=== PATIENT | female | born 1930 | race Caucasian/White ===

== ENCOUNTER 2018-11-29 13:46 | Inpatient (IN) ==
[~2018-11-29 13:46] MED LIST: CARDIZEM IV SCH
--- NOTE | 2018-11-29 14:15 | Diag Imaging Result Doc PS360 ---
EXAM: CHEST-2 VIEWS HISTORY: shortness of breath TECHNIQUE: Chest two views COMPARISON: 10/14/2017 FINDINGS: The lungs are hyperexpanded the heart is not enlarged. The vessels are small. There are no infiltrates. No pleural effusions. IMPRESSION: Emphysema Electronically signed by Pablo Manning 11/29/2018 2:13 PM
--- NOTE | 2018-11-29 15:22 | EKG Report ---
Test Performed on : 11/29/2018 1:52:40 PM Test Reason : palpitations Blood Pressure : / mmHG Vent. Rate : 130 BPM Atrial Rate : 123 BPM P-R Int : 000 ms QRS Dur : 088 ms QT Int : 270 ms P-R-T Axes : 000 072 059 degrees QTc Int : 397 ms Atrial fibrillation. with rapid ventricular response. Low voltage QRS Septal infarct , age undetermined Abnormal ECG When compared with ECG of 14-OCT-2017 09:56, Atrial fibrillation. has replaced Sinus rhythm. Vent. rate has increased BY 51 BPM Confirmed by Edwin Milton MD ([id number]) on 12/01/2018 4:34:36 PM
[2018-11-29] MEDS: CARDIZEM 125 MG in NS 100 ML IV SCH (16:05)
[2018-11-29] MEDS: LOVENOX SUBQ SCH (16:06)
[2018-11-29 16:15] LABS: BASO# 0.02 X1000 (0.0-0.2); BASO% 0.2 % (0.0-0.8); EOS# 0.08 X1000 (0.0-0.7); HEMATOCRIT 43.9 % (37.0-47.0); HEMOGLOBIN 14.5 g/dL (12.0-16.0); LYMPH# 0.71 X1000 (1.2-3.4); LYMPH% 8.6 % (20.5-51.1); MCH 29.4 PG (27-31); MCV 88.9 FL (81-99); MONO# 0.47 X1000 (0.11-0.59); MONO% 5.7 % (1.7-9.3); MPV 10.4 FL (7.4-10.4); NEUT# 6.97 X1000 (1.4-6.5); NEUT% 84.5 % (42.2-75.2); PLT 208 X1000 (130-400); RBC 4.94 XMIL (4.2-5.4); RDW 14.3 % (11.5-14.5); WBC 8.25 X1000 (4.8-10.8)
[2018-11-29 16:26] LABS: AGAP 13; ALB/GLOB RATIO 1.9; ALBUMIN 4.9 g/dL (3.5-5.0); ALKALINE PHOSPHATASE 64 U/L (32-104); BUN 13 mg/dL (8-22); CHLORIDE 92 mmol/L (98-107); CK PROFILE 75 U/L (24-173); COSMO 275; CREATININE 0.8 mg/dL (0.5-0.9); ESTIMATED GFR > 60; GLUCOSE 88 mg/dL (70-104); GOT 30 U/L (10-30); GPT 23 U/L (10-36); POTASSIUM 4.2 mmol/L (3.5-5.1); SODIUM 138 mmol/L (136-145); TCO2 33 mmol/L (25-35); TOTAL BILIRUBIN 0.51 mg/dL (0.20-1.00); TOTAL PROTEIN 7.5 g/dL (6.3-8.3)
[2018-11-29 16:33] LABS: FREE T4 1.62 ng/dL (0.93-1.70); TSH 2.28 uIUmL (0.27-4.20)
--- NOTE | 2018-11-29 16:40 | ECHO REPORT ---
ORDER DATE: 11/29/2018 INTERPRETING PHYSICIAN: Paul Mesa MD ECHOCARDIOGRAPHIC MEASUREMENTS: 1. Interventricular septum 0.6 cm. 2. Left ventricular posterior wall 0.6 cm. 3. Diastolic diameter 3.8 cm. 4. Left atrium 2.9 cm. 5. Aorta 2.8 cm. SUMMARY OF THE 2-DIMENSIONAL IMAGIN. Atrial fibrillation was noted with a heart rate ranging from 120 to 140 beats per minute. 2. Tricuspid valve was normal. 3. The aortic valve leaflets were sclerosed, trileaflet, opening normally. 4. Pulmonic valve was normal. 5. There is mild pulmonary regurgitation. 6. Tricuspid valve was normal. 7. There is mild mitral regurgitation. 8. Peak velocity across the aortic valve less than 2 m/sec. 9. There is no aortic stenosis or regurgitation. 10. There is aortic sclerosis. 11. Mild tricuspid regurgitation. 12. Peak velocity across the tricuspid valve was 3.4 m/sec. 13. Pulmonary artery systolic pressure of 55 mmHg. 14. Normal left ventricular cavity size. 15. Estimated ejection fraction of 35% to 40%. However, tachycardia was noted. This could overestimate the ejection fraction. In some views, ejection fraction appeared to be lower. 16. There is no pericardial effusion. cc: MD Edwin Albrecht MD
--- NOTE | 2018-11-29 17:42 | CARDIOLOGY CONSULTATION ---
DATE: 11/29/2018 CHIEF COMPLAINT: Shortness of breath. HISTORY OF PRESENT ILLNESS: Ms. Khan is a 87-year-old white female with a history of abdominal aortic aneurysm repair in 2012. She presented to Dr. Milton' office today with complaints of weakness that have been ongoing for the last couple of weeks. She had no acute palpitations or heart racing. No chest pain. Her shortness of breath was not present at rest and would occur with minimal activity like walking across a room. She denied any overt orthopnea. No bleeding issues. PAST MEDICAL HISTORY: 1. Significant for atrial fibrillation that she suffered in the postoperative around the time of her aneurysm repair. 2. Emphysema with home oxygen therapy. 3. Hypertension. 4. Hyperlipidemia. 5. Abdominal aortic aneurysm repair in February [address] Cartagena. 6. Carotid artery stenosis. 7. History of normal nuclear scan in 2014 with a normal ejection fraction at that time as well. SOCIAL HISTORY: She is a previous smoker not current. No illicit drugs. FAMILY HISTORY: Significant for hypertension. REVIEW OF SYSTEMS: A 10 system review of systems is negative except for those mentioned in the HPI. PHYSICAL EXAMINATION: Vital Signs: She is afebrile. Heart rate of 97 presently. She seems to be popping in and out of atrial fibrillation regularly during the exam. Her blood pressure is 153/108. General: She is in no acute distress. She is very pleasant. HEENT: Oropharynx is moist. Poor dentition. Eye examination, pink conjunctivae. White sclerae. Neck: Examination shows no obvious thyromegaly or thyroid tenderness. Cardiovascular: She sounds to be in a regular rate and rhythm. At the time of my exam her heart rate was 91 on telemetry and it showed sinus. She had no lower extremity edema. Chest: Sounds clear. Difficult to hear breath sounds. No increased work of breathing. No obvious wheezing. Abdomen: Soft, nontender, nondistended. She has no obvious organomegaly. Skin: Exam is warm and dry throughout without any rashes. Neurological: She is moving all extremities well. She has no lateralizing deficits. Psychiatric: She is alert, oriented. She is very pleasant. PERTINENT DATA: Her chest x-ray shows hyperexpanded lungs with no cardiomegaly, small vasculature. Her EKG today at 1352 hours shows what appears to be a coarse rapid atrial fibrillation versus atrial flutter. Rate of 130 beats per minute. Her laboratories were not back as of yet. Previously normal kidney function based on labs in June 2018 with a creatinine of 0.9. TSH is pending. ASSESSMENT: Ms. Khan is an 87-year-old female with a history of postoperative atrial fibrillation in the past. Now presents in atrial fibrillation. PLAN: She is having paroxysms of atrial fibrillation currently. We will initiate some antiarrhythmic therapy in the form of flecainide at 50 mg b.i.d. I will follow up on the echo. She had a previously normal nuclear scan in 2014. Her laboratories are pending. We will have a discussion about anticoagulation with the patient and proceed from there. cc: MD Edwin Jo MD
[2018-11-29 17:57] LABS: URINE SOURCE CLEAN CATCH
[2018-11-29 18:07] LABS: BILIRUBIN URINE NEGATIVE (NEGATIVE); BLOOD URINE NEGATIVE (NEGATIVE); COLOR YELLOW; GLUCOSE URINE NEGATIVE (NEGATIVE); KETONE URINE 20 mg/dL (NEGATIVE); LEUKOCYTES URINE NEGATIVE (NEGATIVE); NITRITE URINE NEGATIVE (NEGATIVE); PH URINE 5.5; PROTEIN URINE NEGATIVE (NEGATIVE); SP GRAVITY URINE 1.008; TURBIDITY URINE CLEAR (CLEAR); UROBILINOGEN URINE NORMAL (NORMAL)
[2018-11-29 18:09] LABS: UR EPITHELIAL CELLS <10 /HPF (<10); URINE BACTERIA NEGATIVE /HPF; URINE RBC <10 /HPF (<10); URINE WBC <10 /HPF (<10)
--- NOTE | 2018-11-29 19:59 | HISTORY AND PHYSICAL ---
PRIMARY CARE PHYSICIAN: Dr. Edwin Milton. CHIEF COMPLAINT: Palpitations. HISTORY OF PRESENT ILLNESS: An 87-year-old white female with a very complicated past medical history presents for evaluation of above-mentioned symptoms. Pertinent's history of present illness began several weeks ago. At that time, patient noted an increased work of breathing and shortness of breath above her baseline advanced COPD. The patient states she was able to carry on her daily activities, although with more difficulty. She denied chest discomfort associated. She denied significant cough, congestion, or fevers. The patient presented to my office this morning for routine followup. Upon arrival, patient did note significant shortness of breath with walking into the office. Upon my evaluation, patient was noted to have an elevated heart rate. EKG confirmed atrial fibrillation with rapid ventricular response. Patient will be admitted to the hospital for full evaluation and management of this condition. Of note, patient denies any additional symptoms with exception of increasing shortness of breath. She denies chest discomfort, feelings of palpitations, paroxysmal nocturnal dyspnea, orthopnea, and increasing lower extremity edema. PAST MEDICAL HISTORY: 1. Abnormal electrocardiogram with poor R-wave progression, possible left atrial enlargement. 2. Status post abdominal aortic aneurysm repair by Dr. Cartagena in 2012. 3. Atrial fibrillation/atrial flutter diagnosed postoperative abdominal aortic aneurysm repair in February 2013. The patient was treated with antiarrhythmic agents for several months but was subsequently converted to Toprol-XL with excellent response until today. 4. Carotid artery disease. 5. Advanced COPD requiring oxygen supplementation. 6. Hypertension. 7. Hypertriglyceridemia. 8. Reflux disease. 9. Glaucoma. 10. History of thrombosed external hemorrhoids status post surgical intervention in 2009. 11. Chronic hoarseness. 12. Hyperlipidemia. 13. Osteoarthritis. 14. Osteoporosis. 15. History of a basal cell carcinoma of the skin. 16. Prolonged tobacco use. 17. History of DONNA/BSO in 1971. CURRENT MEDICATIONS: 1. Aspirin 325 mg daily. 2. Calcium plus vitamin D twice daily. 3. DuoNeb 3 times daily. 4. Latanoprost 0.005 one drop each eye at bedtime. 5. L-lysine 1000 mg daily. 6. Magnesium 250 mg daily. 7. Metamucil 1 capsule daily. 8. Metoprolol ER 50 mg daily. 9. Biotin/keratin daily. 10. Omeprazole 40 mg daily. 11. Vitamin C 1000 mg daily. 12. Vitamin A 400 units daily. 13. Gingko biloba 60 mg daily. ALLERGIES: Patient states she is allergic to Augmentin, Chantix, Cipro, eggs, epinephrine, Fosamax, Macrobid, MiraLAX, Novocain, statin medications, Symbicort and Ultracet. SOCIAL HISTORY: Patient previously smoked 1-1/4 packs per day for 40 years. She stopped in 2012. She denies alcohol or illicit drug use. She is retired from working in the [employer] business. She enjoys cooking and gardening. FAMILY HISTORY: Patient's father passed at age 63 secondary to complications of an acute myocardial infarction. Patient's mother passed at age 93 secondary to complications of a stroke. History of prostate cancer, Parkinson disease and emphysema was or is present in siblings. REVIEW OF SYSTEMS: A 12 point review of systems was performed. Pertinent positives and negatives are noted in history present illness. PHYSICAL EXAMINATION: VITAL SIGNS: Temperature 97.5 degrees, heart rate 90, respirations 18, blood pressure is 151/83. GENERAL: Chronically ill-appearing, elderly, no acute distress. HEENT: Normocephalic, atraumatic. Pupils equal, round, reactive to light. Extraocular muscles intact. Sclerae anicteric. [place] conjunctivae. Oral and nasopharynx clear without exudate. NECK: Supple. No lymphadenopathy. No thyromegaly. No bruits auscultated. CARDIOVASCULAR: Tachycardic, irregularly irregular. No significant murmurs, rubs, or gallops. PULMONARY: Prolonged expiratory phase. Adequate air movement. ABDOMEN: Soft, nontender, nondistended. Positive bowel sounds. EXTREMITIES: Moves all extremities well. No significant clubbing, cyanosis, or edema. DERMATOLOGIC: Evaluation reveals no evidence of rash. LABORATORY DATA: Pending at the time of admission. ASSESSMENT AND PLAN: 87-year-old white female with a complicated past medical history, presented to my office for routine follow up with atrial fibrillation with rapid ventricular response. The patient has noted increasing shortness of breath recently. Patient will be admitted to the hospital for full evaluation and management of this condition. 1. Admit to the CICU. 2. Atrial fibrillation with rapid ventricular response-as above, patient experienced paroxysmal postoperative event after abdominal aortic aneurysm surgery. Patient has been treated with Toprol-XL since that time with excellent response. Unfortunately, patient has experienced a recurrence. We will start patient on a Cardizem drip. We will check multiple labs including CMP, magnesium, cardiac enzymes, and thyroid panel. We will consult Dr. Lowery for further evaluation and management. We will schedule an echocardiogram. 3. Advanced chronic obstructive pulmonary disease-patient has approaching end-stage disease. We will continue oxygen per protocol. We will continue DuoNeb. We will encourage aspiration precautions and incentive spirometry. 4. Hypertension-patient's blood pressure is slightly elevated at admission. This will allow room for treatment with Cardizem therapy. We will follow this while hospitalized and titrate medications as necessary. 5. Hyperlipidemia/hypertriglyceridemia-we will remain aware. Unfortunately, she is unable to tolerate statin intervention. 6. Reflux disease-we will continue omeprazole therapy. 7. Fluid, electrolytes, nutrition. We will monitor electrolytes. Saline lock IV. Cardiac prudent diet. 8. Prophylaxis. Patient will be placed on subcu Lovenox. cc: Edwin Milton MD
[2018-11-29] MEDS: TAMBOCOR PO SCH (20:28)
[2018-11-29] MEDS: XALATAN 0.005% OPH SOLN BOTH EYES SCH (20:30)
[2018-11-29] MEDS: CALTRATE 600 + D PO SCH (20:35)
[2018-11-29] MEDS: DUONEB (A & A) INH SCH (21:15)
[2018-11-30] MEDS ORDERED: LOVENOX SUBQ SCH
--- NOTE | 2018-11-30 01:09 | EKG Report ---
Test Performed on : 11/29/2018 10:08:57 PM Test Reason : Afib to SR Blood Pressure : / mmHG Vent. Rate : 062 BPM Atrial Rate : 062 BPM P-R Int : 168 ms QRS Dur : 072 ms QT Int : 438 ms P-R-T Axes : 082 075 069 degrees QTc Int : 444 ms Normal sinus rhythm. Low voltage QRS Cannot rule out Anteroseptal infarct (cited on or before 29-NOV-2018) Nonspecific ST and T wave abnormality Abnormal ECG When compared with ECG of 29-NOV-2018 13:52, (Unconfirmed) Sinus rhythm. has replaced Atrial fibrillation. Vent. rate has decreased BY 68 BPM Non-specific change in ST segment in Inferior leads Inverted T waves have replaced nonspecific T wave abnormality in Anterior leads Confirmed by Edwin Milton MD ([id number]) on 12/01/2018 4:37:55 PM
[2018-11-30] MEDS: PRILOSEC PO SCH (06:07)
--- NOTE | 2018-11-30 07:09 | EKG Report ---
Test Performed on : 11/30/2018 06:46:37 AM Test Reason : afib Blood Pressure : / mmHG Vent. Rate : 067 BPM Atrial Rate : 067 BPM P-R Int : 176 ms QRS Dur : 068 ms QT Int : 418 ms P-R-T Axes : 085 076 078 degrees QTc Int : 441 ms Normal sinus rhythm. Possible Left atrial enlargement Low voltage QRS Cannot rule out Anteroseptal infarct (cited on or before 29-NOV-2018) Abnormal ECG When compared with ECG of 29-NOV-2018 22:08, (Unconfirmed) No significant change was found Confirmed by Edwin Milton MD ([id number]) on 12/01/2018 4:43:21 PM
[2018-11-30] MEDS: TAMBOCOR PO SCH ×2 (08:12→20:23)
[2018-11-30] MEDS: TOPROL XL PO SCH (08:12)
[2018-11-30] MEDS: CALTRATE 600 + D PO SCH ×2 (08:12→20:24)
[2018-11-30] MEDS: VITAMIN C PO SCH (08:12)
[2018-11-30] MEDS: VITAMIN E PO SCH (08:12)
[2018-11-30] MEDS: PATIENT'S OWN MED PO SCH (08:13)
[2018-11-30] MEDS: CARDIZEM 125 MG in NS 100 ML IV SCH (08:26)
[2018-11-30] MEDS: DUONEB (A & A) INH SCH ×3 (08:32→20:53)
[2018-11-30] MEDS ORDERED: ASPIRIN PO SCH (09:00)
[2018-11-30] MEDS: LOVENOX SUBQ SCH ×2 (14:29→23:31)
--- NOTE | 2018-11-30 18:58 | CARDIOLOGY PROGRESS NOTE ---
DATE: 11/30/2018 SUBJECTIVE: Ms. Khan reports she feels well. She is not having any shortness of breath. No palpitations. OBJECTIVE: Afebrile. Heart rates are variable, anywhere from the 60s all the way up to the 150s since yesterday. Blood pressure 83/56. Most systolics have been anywhere from the 90s to 110s. Generally no acute distress.Cardiovascular: She is in an irregularly irregular rhythm. Current telemetry shows rate-controlled atrial flutter. She has no lower extremity edema. Her chest exam is notable for mild end-expiratory wheezes with prolonged expiratory phase and poor breath sounds. Her abdomen is soft and nontender. LABORATORY DATA: She has no chemistry data from today. DIAGNOSTIC DATA: Her echocardiogram yesterday demonstrated an EF of 35% to 40%. Significant tachycardia was noted that could limit some of the ability to determine the EF. ASSESSMENT: Ms. Khan is an 87-year-old female who presents with rapid atrial fibrillation and currently is in atrial flutter. PLAN: We will change her over to Lovenox at a 1 mg/kg dose. I have reduced her aspirin to 81. We will continue her on the flecainide. We will tentatively plan on EBONIE cardioversion in the morning if she remains in atrial flutter. cc: MD Edwin Jo MD
[2018-11-30] MEDS: XALATAN 0.005% OPH SOLN BOTH EYES SCH (20:23)
[2018-11-30] MEDS: PATIENT'S OWN MED BOTH EYES SCH (20:24)
--- NOTE | 2018-11-30 21:46 | PROGRESS NOTE ---
DATE: 11/30/2018 SUBJECTIVE: Patient was admitted yesterday with atrial fibrillation with a rapid ventricular response. Patient was initially placed on a Cardizem drip. Subsequently, flecainide has been added. Despite this, patient has only achieved intermittent, nonsustained episodes of a sinus- generated rhythm. Her rate, however, has improved considerably when in atrial fibrillation. This morning, patient was resting in bed. She slept reasonably well overnight. This afternoon, patient states she has done reasonably well. She does note one episode of shortness of breath, which she attributes to being hot. She denied chest pain associated. Energy level remains low. She denies fevers, chills, nausea, or vomiting. OBJECTIVE: Vital Signs: T-max 98.7 degrees, heart rate 54 to 154, respirations 16 to 30, blood pressure 83 to 147 over 49 to 140. General: Chronically ill appearing, in no acute distress. Cardiovascular: Irregularly irregular, bradycardic. No significant murmurs, rubs, or gallops. Pulmonary: Prolonged expiratory phase. Adequate air movement. Abdomen: Soft, nontender, nondistended. Positive bowel sounds. Extremities: Moves all extremities well. No significant clubbing, cyanosis, or edema. Dermatologic: No evidence of rash. LABORATORY DATA: None. ASSESSMENT AND PLAN: 1. Atrial fibrillation with rapid ventricular response: As described above, patient continues to experience intermittent episodes despite flecainide therapy. We will plan for a transesophageal echocardiogram cardioversion in the morning. We will defer further medications and anticoagulation to Dr. Lowery. 2. Advanced chronic obstructive pulmonary disease: Patient is approaching end-stage. We will continue her bronchodilators as prescribed at home. We will continue oxygen per protocol. 3. Hypertension: Patient's blood pressure is controlled on her current regimen. 4. Hyperlipidemia/hypertriglyceridemia: Patient is unable to tolerate statin intervention. We will remain aware. 5. Reflux disease: Patient's symptoms are controlled with omeprazole therapy. 6. Disposition: At this point, patient continues to require [facility]ci care in a hospital setting. We will plan discharge home once appropriate. cc: Edwin Milton MD
[2018-12-01] MEDS: CARDIZEM 125 MG in NS 100 ML IV SCH (00:21)
[2018-12-01 06:02] LABS: AGAP 9; BUN 15 mg/dL (8-22); CHLORIDE 91 mmol/L (98-107); COSMO 262; CREATININE 0.7 mg/dL (0.5-0.9); ESTIMATED GFR > 60; GLUCOSE 99 mg/dL (70-104); MAGNESIUM 1.8 mg/dL (1.5-2.7); POTASSIUM 4.2 mmol/L (3.5-5.1); SODIUM 130 mmol/L (136-145); TCO2 30 mmol/L (25-35)
[2018-12-01] MEDS: PRILOSEC PO SCH (06:08)
[2018-12-01] MEDS: ASPIRIN PO SCH ×2 (07:32→09:03)
[2018-12-01] MEDS: CALTRATE 600 + D PO SCH ×3 (07:32→20:05)
[2018-12-01] MEDS: VITAMIN C PO SCH ×2 (07:32→09:05)
[2018-12-01] MEDS: TAMBOCOR PO SCH ×3 (07:32→20:05)
[2018-12-01] MEDS: TOPROL XL PO SCH ×2 (07:33→09:05)
[2018-12-01] MEDS: DUONEB (A & A) INH SCH ×4 (07:52→21:35)
--- NOTE | 2018-12-01 08:15 | EKG Report ---
Test Performed on : 12/01/2018 06:14:51 AM Test Reason : afib Blood Pressure : / mmHG Vent. Rate : 058 BPM Atrial Rate : 058 BPM P-R Int : 176 ms QRS Dur : 078 ms QT Int : 444 ms P-R-T Axes : 084 061 079 degrees QTc Int : 435 ms Sinus bradycardia. with premature atrial complexes. Low voltage QRS Cannot rule out Anteroseptal infarct (cited on or before 29-NOV-2018) Abnormal ECG When compared with ECG of 30-NOV-2018 06:46, (Unconfirmed) premature atrial complexes. are now present Confirmed by Edwin Milton MD ([id number]) on 12/01/2018 4:53:17 PM
[2018-12-01] MEDS: PATIENT'S OWN MED BOTH EYES SCH ×4 (09:04→20:06)
[2018-12-01] MEDS: PATIENT'S OWN MED PO SCH (09:04)
[2018-12-01] MEDS: VITAMIN E PO SCH (09:18)
[2018-12-01] MEDS: LOVENOX SUBQ SCH (12:04)
--- NOTE | 2018-12-01 19:56 | CARDIOLOGY PROGRESS NOTE ---
DATE: 12/01/2018 SUBJECTIVE: Ms. Khan reports she is feeling better. She feels like she is breathing better. PHYSICAL EXAMINATION: She is afebrile. Heart rate 68, blood pressure 115/66. Generally: She is in no acute distress. Cardiovascular: She sounds to be in a regular rate and rhythm. Telemetry currently shows sinus. She has no lower extremity edema. Chest exam: Continues to have a reduced breath sounds as well as mild expiratory wheezes. She has no increased work of breathing. Abdomen: Soft, nontender. PERTINENT DATA: Her ejection fraction was noted to be 35 to 40 percent with a difficult study due to tachycardia. Her sodium is 130. Potassium 4.2, BUN 15, creatinine 0.7. ASSESSMENT: Ms. Khan is an 87-year-old female who presented with atrial fibrillation. PLAN: At this point, I have stopped the diltiazem infusion. I have stopped Lovenox and place her on Eliquis was 2.5 b.i.d. I would continue her on metoprolol as well as the flecainide. I will likely recheck her echo as an outpatient after maintenance of sinus rhythm and hopefully she will have improvement of her ejection fraction with that. Presently from a cardiovascular standpoint, I believe she is reasonable for discharge. cc: MD Edwin Jo MD
[2018-12-01] MEDS: ELIQUIS PO SCH (20:05)
[2018-12-01] MEDS: XALATAN 0.005% OPH SOLN BOTH EYES SCH (20:07)
[2018-12-01 20:27] LABS: URINE SOURCE CLEAN CATCH
[2018-12-01 20:30] LABS: BILIRUBIN URINE NEGATIVE (NEGATIVE); BLOOD URINE SMALL (NEGATIVE); COLOR YELLOW; GLUCOSE URINE NEGATIVE (NEGATIVE); KETONE URINE NEGATIVE (NEGATIVE); LEUKOCYTES URINE MODERATE (NEGATIVE); NITRITE URINE NEGATIVE (NEGATIVE); PROTEIN URINE NEGATIVE (NEGATIVE); SP GRAVITY URINE 1.008; TURBIDITY URINE CLEAR (CLEAR); UR EPITHELIAL CELLS <10 /HPF (<10); URINE BACTERIA 1+ /HPF; URINE RBC <10 /HPF (<10); URINE WBC 20-40 /HPF (<10); UROBILINOGEN URINE NORMAL (NORMAL)
--- NOTE | 2018-12-02 05:06 | PROGRESS NOTE ---
DATE: 12/01/2018 SUBJECTIVE: As described, patient was admitted with atrial fibrillation with rapid ventricular response. Medication adjustments have been per Dr. Lowery's recommendations. This morning, patient was scheduled for EBONIE cardioversion. Prior to this occurring, patient converted to a sinus-generated rhythm. Upon my arrival this morning, patient stated she felt reasonably well. She was in a normal sinus rhythm. She denied chest pains or palpitations. Throughout the day, patient remained in a sinus-generated rhythm. This evening, patient denies symptoms. She has had no fevers, chills, nausea, vomiting, shortness of breath above baseline, chest pains, or palpitations. OBJECTIVE: T-max 98.1 degrees, heart rate 58 to 82, respirations 18 to 23, blood pressure 95- 145/49-70. General: Chronically ill-appearing. No acute distress. Cardiovascular: Regular rate and rhythm. No significant murmurs, rubs, or gallops. Pulmonary: Prolonged expiratory phase. Adequate air movement. Abdomen: Soft, nontender, nondistended. Positive bowel sounds. Extremities: Moves all extremities well. No significant clubbing, cyanosis, or edema. Dermatologic: Evaluation reveals no evidence of rash. Laboratory Data: None. ASSESSMENT/PLAN: 1. Atrial fibrillation with rapid ventricular response-as above, patient converted to a normal sinus rhythm early this morning. She has maintained this rhythm since that time. She currently is being treated with flecainide and metoprolol therapy. Cardizem drip has been discontinued. Should patient remain in a sinus-generated rhythm in the morning, we will consider discharge home with a 30 day event monitor. 2. [id number] Eliquis was initiated by Dr. Lowery today. Thus far, she has tolerated reasonably well. 3. Advanced chronic obstructive pulmonary disease-the patient is approaching end-stage. She is currently being treated with bronchodilators and oxygen supplementation. Symptoms are reasonably stable. 4. Hypertension-patient's blood pressure has remained reasonably controlled on her current regimen. 5. Hyperlipidemia/hypertriglyceridemia-unfortunately, patient is unable tolerate statin intervention. We will remain aware. 6. Reflux disease-patient's symptoms are controlled with omeprazole therapy. 7. Disposition-at this point, patient continues to require senior care care in a hospital setting. We will plan discharge home in the morning should her condition continue to improve. cc: Edwin Milton MD
[2018-12-02] MEDS: PRILOSEC PO SCH (06:08)
[2018-12-02] MEDS: VITAMIN E PO SCH ×2 (07:29→08:12)
[2018-12-02] MEDS: VITAMIN C PO SCH ×2 (07:29→08:12)
[2018-12-02] MEDS: ASPIRIN PO SCH ×2 (07:29→08:11)
[2018-12-02] MEDS: ELIQUIS PO SCH ×3 (07:30→20:34)
[2018-12-02] MEDS: CALTRATE 600 + D PO SCH ×3 (07:30→20:34)
[2018-12-02] MEDS: TAMBOCOR PO SCH ×2 (07:30→20:34)
[2018-12-02] MEDS: TOPROL XL PO SCH ×2 (07:30→20:34)
--- NOTE | 2018-12-02 07:38 | EKG Report ---
Test Performed on : 12/02/2018 07:15:49 AM Test Reason : a fib Blood Pressure : / mmHG Vent. Rate : 126 BPM Atrial Rate : 252 BPM P-R Int : 000 ms QRS Dur : 090 ms QT Int : 324 ms P-R-T Axes : 000 064 063 degrees QTc Int : 469 ms Atrial flutter. with 2:1 AV conduction. Low voltage QRS Cannot rule out Anterior infarct (cited on or before 29-NOV-2018) Abnormal ECG When compared with ECG of 01-DEC-2018 21:31, (Unconfirmed) No significant change was found Confirmed by Edwin Milton MD ([id number]) on 12/05/2018 11:31:22 AM
--- NOTE | 2018-12-02 07:55 | EKG Report ---
Test Performed on : 12/01/2018 9:31:06 PM Test Reason : Rhythem change Blood Pressure : / mmHG Vent. Rate : 109 BPM Atrial Rate : 258 BPM P-R Int : 000 ms QRS Dur : 100 ms QT Int : 346 ms P-R-T Axes : 089 077 074 degrees QTc Int : 465 ms Atrial flutter. with variable AV block. Low voltage QRS Cannot rule out Anterior infarct (cited on or before 29-NOV-2018) Abnormal ECG When compared with ECG of 01-DEC-2018 06:14, Atrial flutter. has replaced Sinus rhythm. Vent. rate has increased BY 51 BPM Confirmed by Edwin Milton MD ([id number]) on 12/05/2018 11:25:37 AM
[2018-12-02] MEDS ORDERED: TOPROL XL PO ONE (07:56)
[2018-12-02] MEDS ORDERED: TAMBOCOR PO ONE (08:00)
[2018-12-02] MEDS: PATIENT'S OWN MED BOTH EYES SCH ×4 (08:11→20:35)
[2018-12-02] MEDS: PATIENT'S OWN MED PO SCH (08:12)
[2018-12-02] MEDS: DUONEB (A & A) INH SCH ×3 (09:48→19:58)
[2018-12-02] MEDS: SEPTRA DS PO SCH ×2 (09:59→20:34)
--- NOTE | 2018-12-02 15:33 | EKG Report ---
Test Performed on : 12/02/2018 2:56:14 PM Test Reason : afib Blood Pressure : / mmHG Vent. Rate : 105 BPM Atrial Rate : 105 BPM P-R Int : 228 ms QRS Dur : 106 ms QT Int : 350 ms P-R-T Axes : 098 039 068 degrees QTc Int : 462 ms Atrial flutter with 2 to 1 block Low voltage QRS Cannot rule out Anterior infarct (cited on or before 29-NOV-2018) Nonspecific ST abnormality Inferior leads Abnormal ECG When compared with ECG of 02-DEC-2018 07:15, (Unconfirmed) ST elevation now present in Inferior leads Confirmed by Edwin Milton MD ([id number]) on 12/05/2018 11:58:56 AM
[2018-12-02] MEDS: XALATAN 0.005% OPH SOLN BOTH EYES SCH (20:34)
--- NOTE | 2018-12-02 20:43 | CARDIOLOGY PROGRESS NOTE ---
DATE: 12/02/2018 SUBJECTIVE: Ms. Khan reports some episodes of palpitations last night. This corresponds to an episode of atrial flutter. Dr. Siddiqi adjusted her medications to include flecainide at an increase dose of 100 mg b.i.d. PHYSICAL EXAMINATION: Afebrile. Heart rate at the time my examination was in the low 100s. Blood pressure 105/73. Generally: No acute distress. Cardiovascular: She is in a regular rhythm, tachycardic rate. She has no lower extremity edema. No murmurs. Chest: Has bilateral end-expiratory wheezes. Abdomen: Soft, nontender. PERTINENT DATA: No new chemistry data. PLAN: We will proceed with the escalated doses of flecainide. I will make her n.p.o. after midnight. Consider cardioversion if she remains in a flutter in the morning. EKG to be checked now. cc: MD Edwin Jo MD
--- NOTE | 2018-12-02 22:26 | PROGRESS NOTE ---
DATE: 12/02/2018 SUBJECTIVE: Upon my arrival this morning, the patient had converted back to atrial fibrillation. Denies significant symptoms associated. Patient's flecainide dose has been adjusted per Dr. Siddiqi. Throughout the day today, patient states she did reasonably well. She had intermittent episodes of atrial fibrillation. This evening, once again, patient is in atrial fibrillation with rapid ventricular response. She denies fevers, chills, nausea, vomiting, shortness of breath, or chest discomfort. OBJECTIVE: T-max 97.9 degrees, heart rate 65 to 127, respirations 18 to 21, blood pressure 98 to 134 over 73 to 87.General: No acute distress. Cardiovascular: Irregularly irregular. Tachycardic. No significant murmurs, rubs, or gallops. Pulmonary: Prolonged expiratory phase. Adequate air movement. Abdomen: Soft, nontender, nondistended. Positive bowel sounds. Extremities: Moves all extremities well. No significant clubbing, cyanosis, or edema. Dermatologic: Evaluation reveals no evidence of rash. LABORATORY DATA: None. ASSESSMENT/PLAN: 1. Atrial fibrillation with rapid ventricular response - Unfortunately, the patient continues to have frequent episodes. The patient's flecainide dosage was adjusted this morning per Cardiology. Metoprolol was increased. Unfortunately, despite this, she continues to have episodes. We will continue our current regimen with plans for cardioversion in the a.m. should she remain in atrial fibrillation. 2. Anticoagulation - The patient is treated with Eliquis per Dr. Lowery. 3. Advanced chronic obstructive pulmonary disease - We will continue the patient on bronchodilators and oxygen supplementation. Symptoms are stable. 4. Hypertension - The patient's blood pressure, at times, has been low. For now, we will continue her current regimen. We will follow this closely. 5. Hyperlipidemia - The patient is unable tolerate statin intervention. We will continue nonmedical management. 6. Reflux disease - The patient's symptoms are controlled with omeprazole therapy. 7. Disposition - At this point, the patient continues to require longterm care in a hospital setting. We will plan discharge home once appropriate. cc: Edwin Milton MD
--- NOTE | 2018-12-03 07:49 | EKG Report ---
Test Performed on : 12/03/2018 06:25:24 AM Test Reason : afib Blood Pressure : / mmHG Vent. Rate : 102 BPM Atrial Rate : 102 BPM P-R Int : 170 ms QRS Dur : 098 ms QT Int : 368 ms P-R-T Axes : 090 036 075 degrees QTc Int : 479 ms Atrial flutter. Low voltage QRS Cannot rule out Anteroseptal infarct (cited on or before 29-NOV-2018) Abnormal ECG When compared with ECG of 02-DEC-2018 14:56, (Unconfirmed) No significant change was found Confirmed by Edwin Milton MD ([id number]) on 12/05/2018 12:04:25 PM
[2018-12-03] MEDS: DUONEB (A & A) INH SCH ×3 (08:06→23:41)
[2018-12-03] MEDS: PRILOSEC PO SCH (09:33)
[2018-12-03] MEDS: TAMBOCOR PO SCH ×2 (09:33→20:58)
[2018-12-03] MEDS: CALTRATE 600 + D PO SCH ×2 (09:33→20:58)
[2018-12-03] MEDS: VITAMIN C PO SCH (09:33)
[2018-12-03] MEDS: ASPIRIN PO SCH (09:33)
[2018-12-03] MEDS: ELIQUIS PO SCH ×2 (09:33→20:58)
[2018-12-03] MEDS: VITAMIN E PO SCH (09:34)
[2018-12-03] MEDS: SEPTRA DS PO SCH ×2 (09:34→20:59)
[2018-12-03] MEDS: PATIENT'S OWN MED PO SCH (09:37)
[2018-12-03] MEDS ORDERED: XYLOCAINE 2% VISCOUS ONE (10:06)
[2018-12-03] MEDS ORDERED: AMIDATE ONE (10:55)
[2018-12-03] MEDS ORDERED: XYLOCAINE-MPF 2% ONE (10:55)
[2018-12-03] MEDS ORDERED: ANESTHESIA PB SET 88 IN 5742 ONE (11:11)
[2018-12-03] MEDS ORDERED: NS 1,000 ML ONE (11:11)
--- NOTE | 2018-12-03 12:11 | EKG Report ---
Test Performed on : 12/03/2018 11:59:38 AM Test Reason : RHYTHM CHANGE Blood Pressure : / mmHG Vent. Rate : 084 BPM Atrial Rate : 084 BPM P-R Int : 230 ms QRS Dur : 122 ms QT Int : 394 ms P-R-T Axes : 089 -44 076 degrees QTc Int : 465 ms Suspect atrial flutter Left axis deviation Anterior infarct (cited on or before 29-NOV-2018) Abnormal ECG When compared with ECG of 03-DEC-2018 06:25, (Unconfirmed) QRS duration has increased Possible Serial changes of Anterior infarct present Confirmed by Edwin Milton MD ([id number]) on 12/05/2018 12:21:11 PM
[2018-12-03] MEDS: PATIENT'S OWN MED BOTH EYES SCH ×3 (13:28→20:58)
[2018-12-03] MEDS ORDERED: REGLAN PO ONE (14:44)
--- NOTE | 2018-12-03 15:13 | CARDIOLOGY PROGRESS NOTE ---
DATE: 12/03/2018 SUBJECTIVE: Ms. Khan reports some nausea today. She went down for a EBONIE cardioversion but apparently converted prior to any procedure being performed. She did have some sedation administered. PHYSICAL EXAMINATION: She is afebrile. Her heart rate presently is in the 80s, blood pressure 139/78. Generally she is in no acute distress. Cardiovascular she sounds to be in a regular rate and rhythm. Telemetry currently shows sinus. She has no lower extremity edema.Chest: Has decreased breath sounds somewhat diffusely. No increased work of breathing. Abdomen: Soft, nontender. PERTINENT DATA: No new chemistry data from today. ASSESSMENT: Ms. Khan is an 87-year-old female who presents with atrial fibrillation. PLAN: She appears to be in sinus rhythm. She is on Eliquis at a low dose according to her age and weight. She continues on flecainide as well as metoprolol. We will continue on these medications and evaluate her with a cardiac event detector at home to evaluate for occult episodes as originally she was tachycardic on presentation with no symptoms of atrial fibrillation. From my standpoint, she is okay to go home. Currently, the only thing that would maintain her in the hospital at this point, is a lack of resolution of her current nausea. cc: MD Edwin Jo MD
--- NOTE | 2018-12-03 20:04 | EKG Report ---
Test Performed on : 12/03/2018 6:02:26 PM Test Reason : confirm rhythm Blood Pressure : / mmHG Vent. Rate : 106 BPM Atrial Rate : 106 BPM P-R Int : 190 ms QRS Dur : 114 ms QT Int : 370 ms P-R-T Axes : 078 001 059 degrees QTc Int : 491 ms Atrial flutter. Low voltage QRS Cannot rule out Anterior infarct (cited on or before 29-NOV-2018) Abnormal ECG When compared with ECG of 03-DEC-2018 11:59, (Unconfirmed) Serial changes of evolving Anterior infarct present Confirmed by Edwin Milton MD ([id number]) on 12/05/2018 12:26:23 PM
[2018-12-03] MEDS: XALATAN 0.005% OPH SOLN BOTH EYES SCH (20:57)
[2018-12-03] MEDS: TOPROL XL PO SCH (20:58)
[2018-12-04] MEDS: PRILOSEC PO SCH ×2 (05:19→06:01)
[2018-12-04] MEDS: DUONEB (A & A) INH SCH ×3 (08:21→22:58)
--- NOTE | 2018-12-04 09:23 | PROGRESS NOTE ---
DATE: 12/03/2018 SUBJECTIVE: Upon my arrival this morning, patient was noted to be in atrial flutter with rapid ventricular response. Plan for cardioversion was made. Patient was taken for cardioversion. Propofol was provided by Anesthesia. Upon providing this, patient converted to a sinus-generated rhythm. Throughout the day, patient did reasonably well with the exception of nausea. She was treated with as needed Reglan. This evening, unfortunately, patient has converted back to atrial flutter with a heart rate in the low 100s. She complains of nausea, however, this has improved with Reglan. She denies fevers, chills, shortness of breath, or chest discomfort at present time. OBJECTIVE: T-max 98.3 degrees, heart rate 87 to 104, respirations 116 to 120, blood pressure 111 to 141/68 to 80.General: Elderly. No acute distress. Cardiovascular: Tachycardic, regular rhythm. No significant murmurs, rubs, or gallops. Pulmonary: Clear to auscultation bilaterally. Prolonged expiratory phase. Abdomen: Soft, nontender, nondistended. Positive bowel sounds. Extremities: Moves all extremities well. No significant clubbing, cyanosis, or edema. Dermatologic: Evaluation reveals no evidence of rash. LABORATORY DATA: None. ASSESSMENT AND PLAN: 1. Atrial fibrillation/atrial flutter with rapid ventricular response-unfortunately, patient continues to have frequent fluctuations between sinus rhythm and atrial fibrillation/atrial flutter. As above, patient was taken for cardioversion, but converted prior to this occurring. Unfortunately, patient has converted back to atrial fibrillation/atrial flutter. Heart rate at present time is slightly tachycardic, but better than upon admission. For now, we will continue metoprolol and flecainide therapy. We will discuss case with Dr. Lowery. We will determine if further intervention is warranted. 2. Anticoagulation-we will continue patient on Eliquis therapy per Dr. Lowery. 3. Nausea-this likely was a consequence of anesthesia. We will continue as needed Reglan. 4. Advanced chronic obstructive pulmonary disease-the patient continues to require supplemental oxygen therapy. We will continue bronchodilators as well. 5. Hypertension-patient's blood pressure is controlled on her current regimen. 6. Reflux disease-will continue patient on omeprazole therapy. Symptoms are controlled. 7. Disposition-at this point, patient continues to require group home care in a hospital setting. We will plan discharge home once appropriate. cc: Edwin Milton MD
[2018-12-04] MEDS: VITAMIN C PO SCH (10:08)
[2018-12-04] MEDS: TAMBOCOR PO SCH (10:09)
[2018-12-04] MEDS: ELIQUIS PO SCH ×3 (10:09→20:32)
[2018-12-04] MEDS: ASPIRIN PO SCH (10:09)
[2018-12-04] MEDS: CALTRATE 600 + D PO SCH ×3 (10:09→20:31)
[2018-12-04] MEDS: SEPTRA DS PO SCH (10:09)
[2018-12-04] MEDS: VITAMIN E PO SCH (10:09)
[2018-12-04] MEDS: PATIENT'S OWN MED PO SCH (10:24)
[2018-12-04] MEDS: PATIENT'S OWN MED BOTH EYES SCH ×4 (10:24→20:32)
[2018-12-04] MEDS ORDERED: ZOFRAN IV PRN (10:30)
[2018-12-04] MEDS ORDERED: REGLAN PO PRN (10:49)
[2018-12-04] MEDS ORDERED: REGLAN PO ONE (10:49)
[2018-12-04 12:32] LABS: BASO# 0.02 X1000 (0.0-0.2); BASO% 0.2 % (0.0-0.8); EOS# 0.01 X1000 (0.0-0.7); EOS% 0.1 % (0.0-10.0); HEMOGLOBIN 12.8 g/dL (12.0-16.0); IMM GRAN# 0.03 X1000 (0.0-0.04); IMM GRAN% 0.3 % (0.0-0.5); LYMPH# 0.78 X1000 (1.2-3.4); LYMPH% 7.7 % (20.5-51.1); MCHC 32.8 g/dL (33-37); MCV 91.3 FL (81-99); MONO# 0.62 X1000 (0.11-0.59); MONO% 6.1 % (1.7-9.3); MPV 10.7 FL (7.4-10.4); NEUT# 8.63 X1000 (1.4-6.5); NEUT% 85.6 % (42.2-75.2); PLT 181 X1000 (130-400); RBC 4.27 XMIL (4.2-5.4); RDW 14.2 % (11.5-14.5); WBC 10.09 X1000 (4.8-10.8)
[2018-12-04] MEDS ORDERED: LANOXIN PO SCH (12:45)
[2018-12-04 13:09] LABS: ALB/GLOB RATIO 1.4; ALBUMIN 3.6 g/dL (3.5-5.0); CALCIUM 9.6 mg/dL (8.8-10.2); CREATININE 0.9 mg/dL (0.5-0.9); POTASSIUM 5.4 mmol/L (3.5-5.1); TOTAL BILIRUBIN 0.25 mg/dL (0.20-1.00); TOTAL PROTEIN 6.1 g/dL (6.3-8.3)
[2018-12-04 13:16] LABS: LYMPHS 9 % (21-51); MONO 6 % (1-9); SEGS 85 % (42-75)
[2018-12-04 13:17] LABS: ANISOCYTOSIS 1+
--- NOTE | 2018-12-04 15:07 | PROGRESS NOTE ---
DATE: 12/04/2018 SUBJECTIVE: Upon my arrival this morning, patient was in bed. She noted significant nausea over the course of the last 24 to 48 hours. The patient denies being able to eat adequate amounts of food and hydrate to support herself. Her energy level is very low. From a cardiovascular standpoint, patient continues to have intermittent episodes of atrial fibrillation. Rates are better controlled with her current medical regimen. She denies fevers, chills, shortness of breath, or chest discomfort. OBJECTIVE: T-max 98.4 degrees, heart rate 63 to 104, respirations 14 to 20, blood pressure 95 to 139 over 55 to 77.General: Elderly, no acute distress. Cardiovascular: Regular rate and rhythm. No significant murmurs, rubs, or gallops. Pulmonary: Clear to auscultation bilaterally. Abdomen: Soft, nontender, nondistended. Positive bowel sounds. Extremities: Moves all extremities well. No significant clubbing, cyanosis, or edema. Dermatologic: Evaluation reveals no evidence of rash. LABORATORY DATA: Pending at the time of my dictation. ASSESSMENT AND PLAN: 1. Atrial fibrillation/atrial flutter with rapid ventricular response-the patient continues to have paroxysmal events. Fortunately, her rate is much better controlled with each. For now, we will continue flecainide and metoprolol therapy. Should the patient's nausea improve, we will consider discharge home in the near future. Further intervention with goal to achieve sinus rhythm will be considered as an outpatient per Cardiology. 2. Anticoagulation-thus far, patient has tolerated Eliquis therapy. We will continue this. 3. Nausea-unfortunately, this is significant. This is currently limiting our ability to discharge home. We will start patient on Reglan as needed. We will convert the patient from Bactrim to cefdinir therapy. We will check multiple labs today. We will follow this as well. 4. Chronic obstructive pulmonary disease-patient has significant disease. She is currently being treated with bronchodilators and oxygen therapy. Symptoms are stable. 5. Hypertension. Patient's blood pressure is controlled on her current regimen. We will follow this. 6. Reflux disease-we will continue patient on omeprazole therapy. 7. Disposition-at this point, patient continues to require long-term care in a hospital setting. We will plan discharge home once appropriate. cc: Edwin Milton MD
[2018-12-04] MEDS ORDERED: NS 1,000 ML IV SCH (18:45)
[2018-12-04] MEDS: OMNICEF PO SCH ×2 (19:31→20:32)
[2018-12-04] MEDS: TOPROL XL PO SCH ×2 (19:31→20:32)
[2018-12-04] MEDS: XALATAN 0.005% OPH SOLN BOTH EYES SCH ×2 (19:31→20:32)
--- NOTE | 2018-12-04 21:03 | CARDIOLOGY PROGRESS NOTE ---
DATE: 12/04/2018 SUBJECTIVE: Mr. Khan continues to have periodic bouts of atrial fibrillation overnight. These are relatively asymptomatic. PHYSICAL EXAMINATION: Vital signs: She is afebrile. Heart rate is 67, blood pressure 134/62. Her peak heart rates yesterday seemed to be documented in the low 100's. Generally: She is in no acute distress. Cardiovascular: She is in a regular rate and rhythm. Currently in sinus. She has no murmurs. No S3. Chest Exam: Notable for reduced breath sounds diffusely with mild expiratory wheezes. She has no increased work of breathing. Abdomen: Soft, nontender. PERTINENT DATA: White count 10, hematocrit 39, platelet count is 181,000. ASSESSMENT: Ms. Khan is an 87-year-old female with paroxysmal atrial fibrillation. PLAN: We will change our plan and go to a rate control method. She continues on apixaban. We will stop her flecainide and place her on a low dose of digoxin daily, which will be added to the metoprolol she is already on. cc: MD Edwin Jo MD MTDDejan
[2018-12-05] MEDS: PRILOSEC PO SCH ×2 (05:02→06:01)
[2018-12-05 06:02] LABS: ALBUMIN 3.9 g/dL (3.5-5.0); CALCIUM 9.5 mg/dL (8.8-10.2); CREATININE 0.9 mg/dL (0.5-0.9); POTASSIUM 4.9 mmol/L (3.5-5.1); TOTAL BILIRUBIN 0.3 mg/dL (0.20-1.00); TOTAL PROTEIN 5.9 g/dL (6.3-8.3)
[2018-12-05] MEDS: DUONEB (A & A) INH SCH ×3 (08:30→21:32)
[2018-12-05] MEDS: VITAMIN C PO SCH (10:13)
[2018-12-05] MEDS: ELIQUIS PO SCH ×2 (10:13→20:38)
[2018-12-05] MEDS: ASPIRIN PO SCH (10:13)
[2018-12-05] MEDS: OMNICEF PO SCH ×2 (10:13→20:38)
[2018-12-05] MEDS: LANOXIN PO SCH (10:13)
[2018-12-05] MEDS: VITAMIN E PO SCH (10:13)
[2018-12-05] MEDS: CALTRATE 600 + D PO SCH ×2 (10:13→20:37)
[2018-12-05] MEDS: PATIENT'S OWN MED PO SCH (10:28)
[2018-12-05] MEDS: PATIENT'S OWN MED BOTH EYES SCH ×4 (10:28→21:18)
--- NOTE | 2018-12-05 13:55 | Diag Imaging Result Doc PS360 ---
EXAM: CHEST-PORTABLE INDICATION: COPD TECHNIQUE: One view COMPARISON: 11/29/2018 FINDINGS: The lungs are hyperinflated suggesting COPD, stable. There is chronic appearing interstitial thickening similar to the previous study. Central vasculature is prominent suggesting pulmonary venous congestion, however. There is no discrete pleural fluid collection or pneumothorax. The cardiac silhouette is essentially unremarkable. IMPRESSION: COPD changes and suggestion of pulmonary venous congestion. Electronically signed by Yoni Ledezma 12/05/2018 1:53 PM
--- NOTE | 2018-12-05 15:58 | CARDIOLOGY PROGRESS NOTE ---
DATE: 12/05/2018 SUBJECTIVE: Ms. Khan reports she is no better today. She has complaints of shortness of breath. She is on a Venturi mask. PHYSICAL EXAMINATION: Vital Signs: The patient is afebrile. Her heart rate is 74, blood pressure 127/64. General: She is in no acute distress. Cardiovascular: She is in a tachycardic and irregular rhythm consistent with atrial fibrillation. Her chest exam has diffuse end-expiratory wheezes, prolonged expiratory phase. Abdomen: Soft, nontender. PERTINENT DATA: Lab data shows a sodium 131, potassium 4.9, BUN is 18, creatinine 0.9. Her I's and O's demonstrate a net negative fluid balance for the last several days. ASSESSMENT: Ms. Khan is an 87-year-old female with COPD, presents with atrial fibrillation. PLAN: We added in digoxin yesterday. The patient seems to be failing both rhythm and rate control methods. At this point, I will discuss with [facility] tomorrow potential for transfer over for AV node ablation and pacemaker. I believe her significant degree of lung disease is going to be a constant pressure to push her back into atrial fibrillation and it seems like she is a difficult patient to rate control. cc: MD Edwin Jo MD
--- NOTE | 2018-12-05 18:28 | EKG Report ---
Test Performed on : 12/05/2018 11:19:24 AM Test Reason : change in rhythm Blood Pressure : / mmHG Vent. Rate : 124 BPM Atrial Rate : 159 BPM P-R Int : 000 ms QRS Dur : 090 ms QT Int : 288 ms P-R-T Axes : 000 025 -41 degrees QTc Int : 413 ms Atrial fibrillation. with rapid ventricular response. Low voltage QRS Cannot rule out Anteroseptal infarct (cited on or before 29-NOV-2018) Abnormal ECG When compared with ECG of 03-DEC-2018 18:02, (Unconfirmed) QRS duration has decreased Serial changes of evolving Anteroseptal infarct present Confirmed by Edwin Milton MD ([id number]) on 12/07/2018 9:12:49 PM
[2018-12-05] MEDS: TOPROL XL PO SCH (20:38)
[2018-12-05] MEDS: XALATAN 0.005% OPH SOLN BOTH EYES SCH (20:38)
--- NOTE | 2018-12-05 21:30 | PROGRESS NOTE ---
DATE: 12/05/2018 SUBJECTIVE: Unfortunately, patient continues to have issues with atrial fibrillation with rapid ventricular response. She has attempted several medications without significant control. We planned a cardioversion, however this is not been needed secondary to the paroxysmal nature of her disease. Over the course of the last 24 hours, patient's oxygen demands have increased. She notes increasing shortness of breath. She has intermittent palpitations. She denies chest discomfort, fevers and chills. She has does continue to have intermittent nausea with decreased p.o. intake. OBJECTIVE: T-max 98.6 degrees, heart rate 72 to 120, respirations 15-18, blood pressure 97 to 150 over 57 to 70.General: Elderly, no acute distress. Cardiovascular: Tachycardic, regular rhythm. No significant murmurs, rubs or gallops. Pulmonary: Clear to auscultation bilaterally. Prolonged expiratory phase. Abdomen: Soft, nontender, nondistended. Positive bowel sounds. Extremities: Moves all extremities well. No significant clubbing, cyanosis or edema. Dermatologic: Evaluation reveals no evidence of rash. LABORATORY DATA: Sodium 131, potassium 4.9, chloride 90, bicarb 31, BUN 18, creatinine 0.9, glucose 90, calcium 9.5, total bilirubin 0.30, total protein 5.9, albumin 3.9, alkaline phosphatase 57, AST 52, ALT 64, proBNP 3014. ASSESSMENT AND PLAN: 1. Atrial fibrillation/atrial flutter with rapid ventricular response-unfortunately, patient appears to have failed medical intervention and rate control. I have discussed case with Dr. Lowery. We will consider transfer to [facility] tomorrow for pacemaker ablation. 2. Anticoagulation-we will continue patient on Eliquis therapy. Thus far she has tolerated well. 3. Nausea-this has been significant. I suspect this was largely secondary to Bactrim therapy. Patient has been transitioned off of Bactrim. We will continue symptomatic management for now. 4. Chronic obstructive pulmonary disease-patient has longstanding disease. We will continue patient's optimized medical management. 5. Urinary tract infection- patient has been transitioned from Bactrim to Cefdinir therapy. This will be followed. 6. Hypertension-patient's blood pressure is controlled on her current regimen. 7. Reflux disease-we will continue patient on omeprazole therapy. 8. Disposition-at this point, patient continues to require long term care in a hospital setting. We will plan discharge home once appropriate. cc: Edwin Milton MD
[2018-12-06 05:43] LABS: BASO# 0.02 X1000 (0.0-0.2); BASO% 0.3 % (0.0-0.8); EOS# 0.12 X1000 (0.0-0.7); EOS% 1.9 % (0.0-10.0); HEMOGLOBIN 11.7 g/dL (12.0-16.0); IMM GRAN# 0.02 X1000 (0.0-0.04); IMM GRAN% 0.3 % (0.0-0.5); LYMPH# 0.78 X1000 (1.2-3.4); LYMPH% 12.1 % (20.5-51.1); MCH 30.5 PG (27-31); MCHC 33.4 g/dL (33-37); MCV 91.4 FL (81-99); MONO# 0.86 X1000 (0.11-0.59); MONO% 13.3 % (1.7-9.3); NEUT# 4.67 X1000 (1.4-6.5); NEUT% 72.1 % (42.2-75.2); PLT 163 X1000 (130-400); RBC 3.83 XMIL (4.2-5.4); WBC 6.47 X1000 (4.8-10.8)
[2018-12-06] MEDS: PRILOSEC PO SCH (06:13)
[2018-12-06 06:14] LABS: ALB/GLOB RATIO 1.6; ALBUMIN 3.3 g/dL (3.5-5.0); ALKALINE PHOSPHATASE 49 U/L (32-104); BUN 14 mg/dL (8-22); CALCIUM 8.7 mg/dL (8.8-10.2); CREATININE 0.8 mg/dL (0.5-0.9); ESTIMATED GFR > 60; GLUCOSE 94 mg/dL (70-104); GOT 47 U/L (10-30); GPT 64 U/L (10-36); TCO2 27 mmol/L (25-35); TOTAL PROTEIN 5.3 g/dL (6.3-8.3)
[2018-12-06 06:37] LABS: CHLORIDE 94 mmol/L (98-107); POTASSIUM 4.2 mmol/L (3.5-5.1); SODIUM 134 mmol/L (136-145)
[2018-12-06 06:38] LABS: AGAP 13
[2018-12-06 06:40] LABS: COSMO 268
[2018-12-06] MEDS: CALTRATE 600 + D PO SCH ×4 (07:51→20:28)
[2018-12-06] MEDS: OMNICEF PO SCH ×4 (07:51→20:29)
[2018-12-06] MEDS: ASPIRIN PO SCH ×2 (07:51→08:22)
[2018-12-06] MEDS: VITAMIN C PO SCH ×2 (07:51→08:23)
[2018-12-06] MEDS: LANOXIN PO SCH ×2 (07:51→08:22)
[2018-12-06] MEDS: VITAMIN E PO SCH ×2 (07:52→08:23)
[2018-12-06] MEDS: ELIQUIS PO SCH ×4 (07:52→20:29)
[2018-12-06] MEDS: PATIENT'S OWN MED BOTH EYES SCH ×4 (08:22→20:29)
[2018-12-06] MEDS: PATIENT'S OWN MED PO SCH (08:23)
[2018-12-06] MEDS: DUONEB (A & A) INH SCH ×3 (10:23→21:01)
--- NOTE | 2018-12-06 18:32 | CARDIOLOGY PROGRESS NOTE ---
DATE: 12/06/2018 SUBJECTIVE: Ms. Khan continues to have intermittent bouts of atrial fibrillation. She continues to be poorly controlled, with rates in the 1 teens to 120s. OBJECTIVE: Vital signs: Blood pressure 116/64. Generally: She is in no acute distress. Cardiovascular: She is in an irregularly irregular tachycardic rhythm. She has no murmurs, no S3. She has no lower extremity edema. Chest Exam: Has no real expiratory wheezes. She has no increased work of breathing. Abdomen: Soft, nontender, nondistended. PERTINENT DATA: Lab data shows a sodium 134, potassium is 4.2, BUN 14, creatinine 0.8. Albumin 3.3. ASSESSMENT: Ms. Khan is an 87-year-old female who presents with rapid atrial fibrillation. PLAN: She has failed anti arrhythmic therapy, as well as a rate control. I have discussed the case with the EP service over at [facility] and they will consider seeing her after transfer to the hospitalist to consider AV node ablation and pacemaker implantation. Notably, she had an echocardiogram performed earlier this hospitalization which suggested a reduced ejection fraction in the 35 to 40 percent range, but it was a very compromised study. Previous studies of her ejection fraction had shown preserved ejection fractions. cc: MD Edwin Jo MD
[2018-12-06] MEDS: TOPROL XL PO SCH ×2 (19:41→20:30)
[2018-12-06] MEDS: XALATAN 0.005% OPH SOLN BOTH EYES SCH (20:29)
--- NOTE | 2018-12-06 22:00 | PROGRESS NOTE ---
DATE: 12/06/2018 SUBJECTIVE: Unfortunately, patient continues to have atrial fibrillation. Rate has remained elevated between 115 and 130. Unfortunately, medical intervention has proven ineffective. The patient was originally seen this morning. She did note considerable fatigue and nausea, but no chest discomfort. Throughout the day today, patient states her condition has largely unchanged. This evening, she is again resting in bed without fevers, chills, or chest discomfort. OBJECTIVE: Vital Signs: T-max 99.3 degrees, heart rate 76 to 124, respirations 18 to 23, blood pressure 96 to 135 over 55 to 88. General: Elderly, no acute distress. Cardiovascular: Irregularly irregular. Tachycardic. No significant murmurs, rubs, or gallops. Pulmonary: Clear to auscultation bilaterally. Prolonged expiratory phase. Abdomen: Soft, nontender, nondistended. Positive bowel sounds. Extremities: Moves all extremities well. No significant clubbing, cyanosis, or edema. Dermatologic: Evaluation reveals no evidence of rash. LABORATORY DATA: White blood cell count 6.47, hemoglobin 11.7, hematocrit 35.0, platelet count 163,000. Sodium 134, potassium 4.2, chloride 94, bicarb 27, BUN 14, creatinine 0.8, glucose 94, calcium 8.7, total bilirubin 0.40, total protein 8 5.3, albumin 3.3, alkaline phosphatase 49, AST 47, ALT 64. ASSESSMENT AND PLAN: 1. Atrial fibrillation/atrial flutter with rapid ventricular response: Unfortunately, patient has failed medical management. We attempted transfer to [facility] today, but unfortunately this proved unsuccessful secondary to a bed availability. We will again try in the morning. Patient likely will require pacemaker ablation. 2. Anticoagulation: We will continue patient on Eliquis therapy. 3. Nausea: This likely is secondary to the combination of recent Bactrim therapy as well as atrial fibrillation with rapid ventricular response. We will continue symptomatic management. 4. Chronic obstructive pulmonary disease: The patient is treated with optimum medical management. She requires supplemental oxygen to maintain adequate control. We will continue to optimize medical management. 5. Urinary tract infection: Patient has been transitioned from Bactrim to cefdinir secondary to tolerability issues. We will continue this as she is tolerating cefdinir reasonably well. 6. Hypertension: Patient's blood pressure is controlled on her current regimen. 7. Reflux disease: We will continue patient on omeprazole therapy. 8. Disposition: At this point, patient continues to require care home care in a hospital setting. We will plan discharge home once appropriate. cc: Edwin Milton MD
[2018-12-07] MEDS: DUONEB (A & A) INH SCH (08:01)
[2018-12-07 08:12] VITALS: BP 121/67
[2018-12-07] MEDS: ASPIRIN PO SCH (08:20)
[2018-12-07] MEDS: PRILOSEC PO SCH (08:20)
[2018-12-07] MEDS: CALTRATE 600 + D PO SCH (08:20)
[2018-12-07] MEDS: VITAMIN E PO SCH (08:21)
[2018-12-07] MEDS: LANOXIN PO SCH (08:21)
[2018-12-07] MEDS: ELIQUIS PO SCH (08:23)
[2018-12-07] MEDS: VITAMIN C PO SCH (08:23)
[2018-12-07] MEDS: PATIENT'S OWN MED BOTH EYES SCH (10:31)
[2018-12-07] MEDS: PATIENT'S OWN MED PO SCH (10:31)
--- NOTE | 2018-12-07 12:58 | DISCHARGE SUMMARY ---
ADMISSION DATE: 11/29/2018 DISCHARGE DATE: 12/07/2018 ADMISSION DIAGNOSIS: Palpitations. DISCHARGE DIAGNOSES: 1. Atrial fibrillation/atrial flutter with rapid ventricular response, medication failure. 2. Anticoagulation secondary to atrial fibrillation/atrial flutter. 3. Nausea, likely multifactorial. 4. Urinary tract infection, status post completion of therapy with Bactrim, followed by cefdinir. 5. Chronic obstructive pulmonary disease, present on arrival. 6. Hypertension, present on arrival. 7. Reflux disease, present on arrival. 8. Weakness. CONSULTATIONS: Dr. Lowery with cardiology was consulted for further evaluation and management of atrial fibrillation with rapid ventricular response. PROCEDURES: 1. A chest x-ray was performed on 11/29/2018 which revealed emphysema. 2. Echocardiogram was performed on 11/29/2018 which revealed atrial fibrillation with heart rate ranging from 120 to 140 beats per minute. Tricuspid valve was normal. The aortic valve leaflets were sclerosed, trileaflet, opening normally. Pulmonic valve was normal. There was mild pulmonary regurgitation. Tricuspid valve was normal. There was mild mitral regurgitation. Peak velocity across the aortic valve was less than 2 m/sec. There was no aortic stenosis or regurgitation. There was aortic sclerosis. Mild tricuspid regurgitation. Peak velocity across the tricuspid valve was 3.4 m/sec. Pulmonary artery systolic pressure of 55 mmHg. Normal left ventricular cavity size. Estimated ejection fraction of 35-40%. However, tachycardia was noted. There was no pericardial effusion. 3. Chest x-ray was performed on 12/05/2018 which revealed COPD changes and suggestion of pulmonary venous congestion. HISTORY AND PHYSICAL EXAMINATION: See admission note. PHYSICAL EXAMINATION PRIOR TO DISCHARGE: Temperature 97.7 degrees, heart rate 87, respirations 18, blood pressure was 121/67. General: Elderly. No acute distress. Cardiovascular: Tachycardic, irregularly irregular. No significant murmurs, rubs, or gallops. Pulmonary: A prolonged expiratory phase. Adequate air movement. Abdomen: Soft, nontender, nondistended. Positive bowel sounds. Extremities: Moves all extremities well. No significant clubbing, cyanosis, or edema. Dermatologic: Evaluation reveals no evidence of rash. LABORATORY DATA PRIOR TO DISCHARGE: None. HOSPITAL COURSE: Patient was admitted as per history and physical examination. Hospital course per condition is as follows: 1. Atrial fibrillation/atrial flutter with rapid ventricular response-upon admission, the patient was noted to have symptomatic atrial fibrillation with rapid ventricular response. The patient was placed in the CICU. Dr. Lowery was consulted. Multiple medications were attempted to maintain rate and rhythm, although unsuccessfully. These included flecainide, Cardizem, metoprolol, and digoxin. Because of the refractory nature of her disease, it was felt referral for EP evaluation and pacemaker ablation was most appropriate. Dr. Lowery contacted Dr. Valle at [facility]. The patient will be transferred for further evaluation and management of this condition. 2. Anticoagulation-while hospitalized, Eliquis therapy was initiated secondary to her atrial fibrillation. Thus far, she has tolerated this well. Patient will be transferred to [facility] on Eliquis intervention. 3. Nausea-patient experienced intermittent, significant nausea while hospitalized. Initially, it was felt this likely was secondary to Bactrim in the setting of treatment for a urinary tract infection. Patient was converted to cefdinir, but also had persistent nausea. The question is raised whether this is antibiotic-associated or possibly secondary to her atrial fibrillation. The patient had completed a 5 day course of antibiotic intervention for her urinary tract infection. Antibiotics will be discontinued prior to discharge. Nausea will need to be followed. Certainly, this also could be secondary to other medications being provided. 4. Urinary tract infection-urinalysis from 12/01/2018 suggested the presence of Citrobacter amalonaticus. The patient was initially placed on Bactrim, but had difficulty tolerating secondary to hyperkalemia and hyponatremia. She was transitioned to cefdinir therapy. At the time of discharge, the patient was asymptomatic. Antibiotics will be held. We will check a urinalysis prior to discharge to confirm resolution. 5. Profound weakness-this has increased while hospitalized secondary to her inability to ambulate in the setting of her atrial fibrillation. The patient will require physical therapy after procedure intervention. The patient may be a candidate for rehabilitation, depending on her ambulatory status after her intervention. 6. Chronic obstructive pulmonary disease-patient has severe, oxygen dependent disease. She was continued on oxygen and bronchodilators while hospitalized. Symptoms remained reasonably controlled. 7. Hypertension-the patient's blood pressure remained reasonably controlled throughout hospitalization with her current regimen. 8. Reflux disease-the patient was continued on omeprazole therapy while hospitalized. Symptoms remained controlled. DISCHARGE CONDITION: Stable. DISPOSITION: Discharged to [facility]. MEDICATIONS: 1. DuoNeb 3 times daily. 2. Eliquis 2.5 mg twice daily. 3. Vitamin C 1000 mg daily. 4. Aspirin 81 mg daily. 5. Caltrate plus vitamin D twice daily. 6. Digoxin 125 mcg daily. 7. Xalatan eyedrops to each eye at bedtime. 8. Reglan 5 mg every 6 hours as needed. 9. Metoprolol ER 75 mg at bedtime. 10. Omeprazole 40 mg daily. 11. Zofran 4 mg IV every 4 hours as needed. 12. Lysine 1000 mg daily. 13. Natural Tears 4 times daily as needed. 14. Vitamin E 400 units daily. FOLLOWUP: The patient is to follow up with me upon discharge from [facility]. The patient is to follow up with Dr. Lowery upon discharge from [facility]. cc: Edwin Milton MD
== END 2018-12-07 10:30 | disposition short-term general hospital (02) | DRG 309 ==
LOC: 3S 16:13
PROVIDERS: ADMIT Internal Medicine; ATTEND Internal Medicine
CPT/HCPCS: 71010; 71020; 71045; 71046; 80048; 80053; 81001; 82550; 83735; 83880; 84439; 84443; 84484; 85025; 87077; 87088; 87186; 93005; 93010; 93306; 93312; 94640; 94761; 94799; A9270; J1650; J2405; J7030